=== PATIENT | male | born 1985 | race Caucasian/White ===

== ENCOUNTER → 2025-01-11 | Outpatient (CLI) | payer OTHER ==
[2025-01-11 15:48] VITALS: BP 148/95; PULSE 67; RESP 16; TEMP 98
--- NOTE | 2025-01-11 18:30 | P.SLEEP ---
History of Present Illness H&P Date: 01/11/25 This is a 39-year-old male patient who was referred to me due to suspicion of obstructive sleep apnea. The patient reports loud snoring and he also reports waking up choking and gasping for air on few occasions on a nightly basis. He has been told to stop breathing at night by family members. He has a dry mouth in the morning. He goes to bed at around 9 PM and wakes at 4:30 AM in the morning. On weekends, he goes to bed at midnight and he wakes at 7:30 AM in the morning. 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 He lives in [place] and he works in [employer]. He drives back and forth and he has to be at work at around 5:45 AM in the morning. He does not fall asleep while driving. No history of any motor vehicle accidents because of feeling drowsy or sleepy. His current [place] score is at 9. He sleeps in different body positions including side and stomach. He is a nose breather. He takes a nap at around 3 PM after coming back from work. He drinks 2 cups of coffee in the morning. His weight has been essentially stable with minimal amount of weight gain over the past 1 year. The patient wakes up several times in the middle of the night and is able to generate sleep without any major difficulties. No sleep paralysis. No hallucinations. No cataplexy. The patient does not feel refreshed even after taking around 6 to 7 hours of sleep. Occasional grinding of the teeth. No nocturnal chest pain or heartburn or shortness of breath. No anxiety. No depression. He has chronic bronchial asthma and has been well treated with Breo Ellipta. The patient is an ex smoker and he quit smoking about 6 months ago. No substance abuse. No alcoholism. His father of complication of acute myocardial infarction at a young age. His father also had IPF. His current [place] score is at 9. Review of Systems Constitutional: Reports daytime sleepiness, Reports fatigue Eyes: denies as per HPI, denies blurred vision, denies bulging eye, denies decreased vision, denies diplopia, denies discharge, denies dry eye, denies irritation, denies itching, denies pain, denies photophobia, denies loss of peripheral vision, denies loss of vision, denies tunnel vision/blind spots Ears: deny: decreased hearing, ear discharge, earache, tinnitus Ears, nose, mouth and throat: Reports as per HPI Breasts: absent: as per HPI, gynecomastia Cardiovascular: Reports as per HPI Respiratory: Reports snoring Gastrointestinal: Reports as per HPI Genitourinary: Reports as per HPI Musculoskeletal: Reports as per HPI Musculoskeletal: absent: ankle pain, ankle stiffness, ankle swelling, as per HPI, elbow pain, elbow stiffness, elbow swelling, foot pain, foot stiffness, foot swelling, hand pain, hand stiffness, hand swelling, hip pain, hip stiffness, hip swelling, knee pain, knee stiffness, knee swelling, shoulder pain, shoulder stiffness, shoulder swelling, wrist pain, wrist stiffness, wrist swelling Integumentary: Reports as per HPI Neurological: Reports as per HPI Psychiatric: Reports hypersomnia, Reports sleep disturbances Endocrine: Reports as per HPI, Reports fatigue Hematologic/Lymphatic: Reports as per HPI Allergic/Immunologic: Reports as per HPI Past Medical History Past Medical History: Asthma History of Any Multi-Drug Resistant Organisms: None Reported Past Surgical History: No Surgical Hx Reported Past Psychological History: No Psychological Hx Reported Smoking Status: Former smoker Past Alcohol Use History: Occasional Past Drug Use History: None Reported - Past Family History Father Family Medical History: Hypertension, Myocardial Infarction ([place]) Additional Family Medical History / Comment(s): Dad passed at age 56 from [place], pulmonary fibrosis - fingers clubbed Mother Family Medical History: Cancer Additional Family Medical History / Comment(s): Breast cancer, (moms grandmother - lung cancer) Medications and Allergies Home Medications and Allergies Comment(s): Breo Ellipta 200 mcg 1 puff a day Physical Exam Vitals: Vital Signs Temp Pulse Resp BP Pulse Ox 01/11/25 15:47 98.0 F 67 16 148/95 98 Intake and Output 01/11/25 01/11/25 01/11/25 06:59 14:59 22:59 Other: Weight 94.12 kg The patient appeared well nourished and normally developed. Vital signs as documented. Body mass index is 28.1. Mallampati class IV. Head exam is unremarkable. No scleral icterus or corneal arcus noted. Neck is without jugular venous distension, thyromegaly, or carotid bruits. Carotid upstrokes are brisk bilaterally. Lungs are clear to auscultation and percussion. Cardiac exam reveals the PMI to be normally sized and situated. Rhythm is regu lar. First and second heart sounds normal. No murmurs, rubs or gallops. Abdominal exam reveals normal bowel sounds, no masses, no organomegaly and no aortic enlargement. Extremities are nonedematous and both femoral and pedal pulses are normal. Examination of the skin revealed no evidence of significant rashes, suspicious appearing nevi or other concerning lesions. Neurologically, the patient is awake and alert and the patient does not have any focal neurological deficit. Cranial nerves are essentially intact. Assessment and Plan Plan: Chronic hypersomnia, current [place] score is at 9. Possible obstructive sleep apnea as the patient has history of loud snoring, apneas and sleep fragmentation. On examination, the patient carries a Mallampati class IV. No significant obesity and the patient's BMI is at 28.1. Chronic bronchial asthma which is currently inactive and stable Former smoker Plan This patient will need further evaluation regarding the possibility of obstructive sleep apnea. Will set up this patient for a screening polysomnography to rule out CEZAR Will continue maintaining good sleep hygiene measures Patient is averaging around 7 hours of sleep on a daily basis. Maintain regular sleep schedule I am going to review the polysomnography and make further recommendation of treatment options based on the results of the PSG. Time with Patient: Greater than 30 Sleep Note - Sleep Data ESS Total: 9 - Sleep Note Sleep Note: Temperature: 98.0 F Pulse Rate: 67 Respiratory Rate: 16 Blood Pressure: 148/95 SpO2: 98 Height: 6 ft 0.07 in Weight: 94.12 kg BMI: Neck Circumference: 16.7
== END ==
LOC: 3 N SLEEP 14:43
PROVIDERS: ATTEND Internal Medicine Critical Care Medicine
DX: G47.10 Hypersomnia, unspecified (principal); J44.89 Other specified chronic obstructive pulmonary disease; Z68.28 Body mass index [BMI] 28.0-28.9, adult; Z87.891 Personal history of nicotine dependence
CPT/HCPCS: 99202

== ENCOUNTER 2025-02-16 19:32 | Outpatient (CLI) | payer OTHER ==
--- NOTE | 2025-02-28 22:33 | P.PCN ---
Date of Procedure: 02/16/25 Operative Findings: Polysomnography report History This is a 39-year-old male patient who was referred to me due to suspicion of obstructive sleep apnea. The patient reports loud snoring and he also reports waking up choking and gasping for air on few occasions on a nightly basis. He has been told to stop breathing at night by family members. He has a dry mouth in the morning. He goes to bed at around 9 PM and wakes at 4:30 AM in the morning. On weekends, he goes to bed at midnight and he wakes at 7:30 AM in the morning. 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 He lives in [place] and he works in [employer]. He drives back and forth and he has to be at work at around 5:45 AM in the morning. He does not fall asleep while driving. No history of any motor vehicle accidents because of feeling drowsy or sleepy. His current [place] score is at 9. He sleeps in different body positions including side and stomach. He is a nose breather. He takes a nap at around 3 PM after coming back from work. He drinks 2 cups of coffee in the morning. His weight has been essentially stable with minimal amount of weight gain over the past 1 year. The patient wakes up several times in the middle of the night and is able to generate sleep without any major difficulties. No sleep paralysis. No hallucinations. No cataplexy. The patient does not feel refreshed even after taking around 6 to 7 hours of sleep. Occasional grinding of the teeth. No nocturnal chest pain or heartburn or shortness of breath. No anxiety. No depression. He has chronic bronchial asthma and has been well treated with Breo Ellipta. The patient is an ex smoker and he quit smoking about 6 months ago. N o substance abuse. No alcoholism. His father of complication of acute myocardial infarction at a young age. His father also had IPF. His current [place] score is at 9. Pertinent physical findings Weight is 207 with a body mass index of 27.5 Technical description The patient was studied using a standard complex polysomnography protocol that included recording of the Lead II EKG, Central, occipital and frontal EEG, right and left outer canthus EOG, submental EMG, right and left anterior tibialis EMG, respiratory airflow by thermocouple and or pressure/flow transducer, respiratory efforts by abdominal and thoracic PVDF belts, oxygen saturation by cable oximetry. Position by observation synchronized the PSG. Equipment used: [employer]. Sleep architecture Total recording duration was 369.5 minutes. The total sleep time was 318.5 minutes. The wake after sleep onset time was 13 minutes. Overall significant was 86.2%. Latency to sleep onset was 36.5 minutes. The sleep architecture was characterized by 7.4% stage I, 57.6% stage II, 4.7% stage III and a total of 30.3% REM sleep. The total arousal index was 6 Respiratory analysis Sleep study showed a total of 8 obstructive events of which 0 were obstructive apneas, 0 mixed apneas and 8 were obstructive hypopneas. The resulting AHI was 1.5 Oxygenation analysis The average pulse ox while awake was 96%. Lowest oxygen saturation was 90% and the patient was able to maintain oxygen saturation above 90% throughout the sleep study. No significant saturations below 89% were noted Cardiac summary Average heart rate was 71 with a minimum heart rate of 65 and a maximum heart of 77 Periodic movement activity There was a total of 4 periodic limb movement with arousals with a PLM arousal index of 0.8 Arousal events A total of 32 arousals with an index of 6. Respiratory arousal index was 0 Assessment Primary snoring, no evidence of any sleep breathing disorder in the patient's AHI was calculated to be at 1.5. No evidence of any significant nocturnal oxygen desaturations. Chronic hypersomnia, current [place] score is at 9. No significant obesity and the patient's BMI is at 28.1 Chronic bronchial asthma which is currently inactive and stable Former smoker Plan No need for CPAP therapy and this is a negative study for CEZAR and he has primary snoring Will continue maintaining good sleep hygiene measures Patient is averaging around 7 hours of sleep on a daily basis. Maintain regular sleep schedule Refer back to the PCP
== END 2025-02-17 05:15 | disposition home or self-care (01) ==
LOC: 3 N SLEEP 19:32
PROVIDERS: ATTEND Internal Medicine Critical Care Medicine
DX: G47.10 Hypersomnia, unspecified (principal); R06.83 Snoring; J45.909 Unspecified asthma, uncomplicated; Z87.891 Personal history of nicotine dependence
CPT/HCPCS: 95810